=== PATIENT | male | born 1950 | race Hispanic/Latino ===

== ENCOUNTER 2019-11-29 08:43 | Emergency (ER) | payer MEDICARE ==
[2019-11-29 09:21] VITALS: BP 156/49
[2019-11-29] MEDS ORDERED: MECLIZINE 25 MG TAB PO ONE (09:30)
--- NOTE | 2019-11-29 09:35 | Emergency Department Report ---
HPI - General Chief Complaint: Dizziness Time Seen by Provider: 11/29/19 09:18 - HPI HPI: Room 23 The patient is a 69-year-old male present with a chief complaint of dizziness. The patient states this morning while s sitting at his desk at work he began to feel as though the room was spinning. The patient states he could not move his head because it worsened the dizziness. Patient states he had a staggering gait and became nauseous. Patient states he vomited 3 times and then became diaphoretic. This is when his boss called 911. Patient was administered an antiemetic which she states helped. Patient states he continued to feel off balance and was transported to the hospital. Patient states he now feels fine. Patient denies any previous episodes of the same. Patient denies any history of fever cough or pain of any type. Patient denies any preceding trauma ED Past Medical Hx - Past Medical History Previous Medical History?: No - Surgical History Past Surgical History?: No Additional Surgical History: Left shoulder surgery - Family History Family history: no significant - Social History Smoking Status: Never Smoker Substance Use Type: None (Denies illicit drug use), Alcohol (Occasional) - Medications Home Medications: Home Medications Medication Instructions Recorded Confirmed Last Taken Type Meclizine [Antivert] 25 mg PO TID PRN #20 tablet 11/29/19 Unknown Rx ED Review of Systems ROS: Stated complaint: DIZZINESS/VOMITING Other details as noted in HPI Constitutional: denies: fever Eyes: vision change ENT: denies: throat pain Respiratory: no symptoms reported Cardiovascular: denies: chest pain Endocrine: no symptoms reported Gastrointestinal: nausea, vomiting. denies: abdominal pain Genitourinary: denies: dysuria Musculoskeletal: denies: back pain Neurological: vertigo. denies: headache Physical Exam - Physical Exam Vital Signs: Vital Signs 11/29/19 09:03 Temperature 97.6 F Pulse Rate 63 Respiratory 16 Rate Blood Pressure 156/49 O2 Sat by Pulse 100 Oximetry Vital Signs 11/29/19 09:03 Temperature 97.6 F Pulse Rate 63 Respiratory 16 Rate Blood Pressure 156/49 O2 Sat by Pulse 100 Oximetry Physical Exam: GENERAL: The patient is well-developed well-nourished male sitting on stretcher not appearing to be in acute distress. [] HEENT: Normocephalic. Atraumatic. Extraocular motions are intact. Patient has moist mucous membranes. No nystagmus noted NECK: Supple. No meningitic signs are noted. Trachea midline CHEST/LUNGS: Clear to auscultation. There is no respiratory distress noted. HEART/CARDIOVASCULAR: Regular. There is no tachycardia. There is no gallop rub or murmur. ABDOMEN: Abdomen is soft, nontender. Patient has normal bowel sounds. There is no abdominal distention. SKIN: There is no rash. There is no edema. There is no diaphoresis. NEURO: The patient is awake, alert, and oriented. The patient is cooperative. The patient has no focal neurologic deficits. The patient has normal speech. Cranial nerves II through XII grossly intact, no drift. No dysmetria noted with [id number] bilaterally. GCS 15 MUSCULOSKELETAL: There is no evidence of acute injury. ED Course Vital Signs 11/29/19 09:03 Temperature 97.6 F Pulse Rate 63 Respiratory 16 Rate Blood Pressure 156/49 O2 Sat by Pulse 100 Oximetry - Reevaluation(s) Reevaluation #1: 11/29/19 12:36 Patient states he feels great ED Medical Decision Making - Lab Data Result diagrams: 11/29/19 10:16 11/29/19 10:16 - EKG Data -: EKG Interpreted by Sd EKG shows normal: sinus rhythm Rate: bradycardia (56 bpm) - EKG Data When compared to previous EKG there are: previous EKG unavailable Interpretation: other (No ischemic changes seen) - Radiology Data Radiology results: report reviewed (CT head), image reviewed (CT head) Findings [facility] [address] [place] [address] Cat Scan Report Signed Patient: MILDRED BALL MR#: [id number] : 1950 Acct:[id number] Age/Sex: 69 / M ADM Date: 11/29/19 Loc: ED Attending Dr: Ordering Physician: CHRISTINE VARGAS MD Date of Service: 11/29/19 Procedure(s): CT head/brain wo con Accession Number(s): [id number] cc: CHRISTINE VARGAS MD CT HEAD WITHOUT CONTRAST INDICATION / CLINICAL INFORMATION: Dizziness. TECHNIQUE: All CT scans at this location are performed using CT dose reduction for ALARA by means of automated exposure control. COMPARISON: None available. FINDINGS: HEMORRHAGE: No evidence of intracranial hemorrhage or extra-axial fluid collection. EXTRA-AXIAL SPACES: Cortical sulci, sylvian fissures and basilar cisterns have an unremarkable appearance. VENTRICULAR SYSTEM: The ventricular system is of normal size and configuration. CEREBRAL PARENCHYMA: No areas of abnormal brain parenchymal attenuation are identified. There is no indication of recent infarction. MIDLINE SHIFT OR HERNIATION: There is no mass effect. CEREBELLUM / BRAINSTEM: Brainstem and cerebellum have an unremarkable appearance. INTRACRANIAL VESSELS:No abnormalities are identified on this noncontrast head CT. ORBITS: visualized portions of the orbits have an unremarkable appearance. SOFT TISSUES of HEAD: No significant abnormality. CALVARIUM: Evaluation of bone windows reveals no abnormalities. PARANASAL SINUSES / MASTOID AIR CELLS: Paranasal sinuses are free from inflammatory mucosal disease. Mastoid air cells are normally pneumatized. ADDITIONAL FINDINGS: None. IMPRESSION: 1. No abnormalities are identified on head CT without contrast. Signer Name: Riley Chi MD Signed: 11/29/2019 12:25 PM Workstation Name: [id number] Transcribed By: Dictated By: Riley Chi MD Electronically Authenticated By: Riley Chi MD Signed Date/Time: 11/29/19 122 DD/ 1222 TD/TT: - Differential Diagnosis Peripheral vertigo, central vertigo, ACS, PE, electrolyte imbalance, sympto Critical care attestation.: If time is entered above; I have spent that time in minutes in the direct care of this critically ill patient, excluding procedure time. ED Disposition Clinical Impression: Vertigo Disposition: DC-01 TO HOME OR SELFCARE Is pt being admited?: No Does the pt Need Aspirin: No Condition: Stable Instructions: Vertigo (ED) Additional Instructions: Return to the emergency department should you develop worsening symptoms, inability to tolerate food or liquids, high fever or any other concerns Prescriptions: Meclizine [Antivert] 25 mg PO TID PRN #20 tablet PRN Reason: Vertigo Referrals: [facility] MD JUAN A [Primary Care Provider] - 3-5 Days AVANI JACOB MD [Staff Physician] - 3-5 Days (Dr Jacob is a neurologist. Please follow-up with him for further evaluation) Time of Disposition: 12:37
[2019-11-29 10:51] LABS: Basophils # (Auto) 0.1 K/mm3 (0.0-0.1); Basophils % (Auto) 0.7 % (0.0-1.8); Eosinophils # (Auto) 0.2 K/mm3 (0.0-0.4); Eosinophils % (Auto) 1.7 % (0.0-4.3); Hematocrit 41.7 % (35.5-45.6); Hemoglobin 14.4 gm/dl (11.8-15.2); Lymphocytes % (Auto) 10.7 % (13.4-35.0); Mean Corpuscular HGB Conc 35 % (32-34); Mean Corpuscular Volume 90 fl (84-94); Monocytes # (Auto) 0.5 K/mm3 (0.0-0.8); Monocytes % (Auto) 5.6 % (0.0-7.3); Platelet Count 216 K/mm3 (140-440); Red Blood Count 4.62 M/mm3 (3.65-5.03); Red Cell Distribution Width 13.3 % (13.2-15.2)
[2019-11-29 11:13] LABS: Creatine Kinase MB 3.7 ng/mL (0.0-4.0)
[2019-11-29 11:17] LABS: Alanine Aminotransferase 24 units/L (7-56); Albumin 4.3 g/dL (3.9-5); BUN/Creatinine Ratio 24; Blood Urea Nitrogen 24 mg/dL (9-20); Calcium 9.7 mg/dL (8.4-10.2); Hemolysis Index 7
[2019-11-29 11:24] LABS: Free T4 (Free Thyroxine) 1.08 ng/dL (0.76-1.46)
--- NOTE | 2019-11-29 12:29 | Cat Scan Report ---
CT HEAD WITHOUT CONTRAST INDICATION / CLINICAL INFORMATION: Dizziness. TECHNIQUE: All CT scans at this location are performed using CT dose reduction for ALARA by means of automated e xposure control. COMPARISON: None available. FINDINGS: HEMORRHAGE: No evidence of intracranial hemorrhage or extra-axial fluid collection. EXTRA-AXIAL SPACES: Cortical sulci, sylvian fissures and basilar cisterns have an unremarkable appear ance. VENTRICULAR SYSTEM: The ventricular system is of normal size and configuration. CEREBRAL PARENCHYMA: No areas of abnormal brain parenchymal attenuation are identified. There is no i ndication of recent infarction. MIDLINE SHIFT OR HERNIATION: There is no mass effect. CEREBELLUM / BRAINSTEM: Brainstem and cerebellum have an unremarkable appearance. INTRACRANIAL VESSELS:No abnormalities are identified on this noncontrast head CT. ORBITS: visualized portions of the orbits have an unremarkable appearance. SOFT TISSUES of HEAD: No significant abnormality. CALVARIUM: Evaluation of bone windows reveals no abnormalities. PARANASAL SINUSES / MASTOID AIR CELLS: Paranasal sinuses are free from inflammatory mucosal disease. Mastoid air cells are normally pneumatized. ADDITIONAL FINDINGS: None. IMPRESSION: 1. No abnormalities are identified on head CT without contrast. Signer Name: Riley Chi MD Signed: 11/29/2019 12:25 PM Workstation Name: [id number]
== END 2019-11-29 13:38 | disposition home or self-care (01) ==
LOC: ED 08:43
DX: R42 Dizziness and giddiness (principal); R11.10 Vomiting, unspecified
CPT/HCPCS: 36415; 70450; 80053; 82550; 82553; 84439; 84443; 84484; 85025; 85379; 93005; 93010; 99284